=== PATIENT | female | born 1965 | race African-American/Black ===

== ENCOUNTER 2022-03-15 18:23 | Emergency (ER) | payer OTHER ==
[~2022-03-15] VITALS: Ht 162.6 cm; Wt 75.0 kg
[2022-03-15 18:24] VITALS: BP 141/92
[2022-03-15] MEDS ORDERED: IBUPROFEN 400MG TABLET PO ONE (18:45)
[2022-03-15] MEDS ORDERED: IBUP-2028 MT (19:42)
== END 2022-03-15 20:14 | disposition left against medical advice (07) ==
LOC: ER 18:23
DX: S82.092A Other fracture of left patella, initial encounter for closed fracture (principal); R07.89 Other chest pain; V43.62XA Car passenger injured in collision with other type car in traffic accident, initial encounter; W22.12XA Striking against or struck by front passenger side automobile airbag, initial encounter; Y93.89 Activity, other specified; Y92.488 Other paved roadways as the place of occurrence of the external cause
CPT/HCPCS: 29505; 71046; 73560; 93005; 99284

== ENCOUNTER 2023-11-18 22:04 | Emergency (ER) | payer MEDICAID ==
[~2023-11-18] VITALS: Ht 165.1 cm; Wt 65.0 kg
[~2023-11-18 22:04] MED LIST: IBUP-2028 MT
[2023-11-18 22:09] VITALS: TEMP 98; O2SAT 100
[2023-11-18 23:15] VITALS: BP 145/94; PULSE 86; RESP 17
[2023-11-18] MEDS: TETANUS, DIPHTHERIA, PERTUSSIS VAC/PF 0.5ML (>10YR OLD) IM ONE (23:15)
[2023-11-18] MEDS: BACITRACIN ZINC OINT UDPKT TOP ONE (23:15)
[2023-11-18] MEDS: ACETAMINOPHEN WITH CODEINE 300/30MG TABLET PO ONE (23:15)
[2023-11-19] MEDS ORDERED: BO1 TP (01:41)
[2023-11-19] MEDS ORDERED: IBUP-2029 MT (01:41)
== END 2023-11-19 01:54 | disposition home or self-care (01) ==
LOC: ER 22:04
DX: R51.9 Headache, unspecified (principal); Z88.0 Allergy status to penicillin; Z86.59 Personal history of other mental and behavioral disorders
CPT/HCPCS: 70486; 90471; 90715; 99285